=== PATIENT | female | born 1980 | race Two or more races ===

== ENCOUNTER → 2020-09-13 | Outpatient (CLI) | payer BC ==
--- NOTE | 2020-09-16 09:16 | MM ---
Reason for exam: screening (asymptomatic). Baseline mammogram. Physical Findings: Nurse did not find any significant physical abnormalities on exam. MG 3D Screening Mammo W/Cad Bilateral CC and MLO view(s) were taken. The breast tissue is heterogeneously dense. This may lower the sensitivity of mammography. There is no discrete abnormality. These results were verbally communicated with the patient and result sheet given to the patient on 09/13/20. ASSESSMENT: Benign, BI-RAD 2 RECOMMENDATION: Routine screening mammogram of both breasts in 1 year.
== END | disposition home or self-care (01) ==
LOC: RADMAMWWP 10:16
PROVIDERS: ATTEND Family Medicine
DX: Z12.31 Encounter for screening mammogram for malignant neoplasm of breast (principal)
CPT/HCPCS: 77063; 77067

== ENCOUNTER → 2021-09-17 | Outpatient (CLI) | payer BC ==
--- NOTE | 2021-09-19 10:50 | MM ---
Reason for exam: screening (asymptomatic). Last mammogram was performed 1 year ago. Physical Findings: A clinical breast exam by your physician is recommended on an annual basis and results should be correlated with mammographic findings. MG 3D Screening Mammo W/Cad Bilateral CC and MLO view(s) were taken. Prior study comparison: September 13, 2020, bilateral MG 3d screening mammo w/cad. The breast tissue is heterogeneously dense. This may lower the sensitivity of mammography. There is no discrete abnormality. No significant changes when compared with prior studies. ASSESSMENT: Negative, BI-RAD 1 RECOMMENDATION: Routine screening mammogram of both breasts in 1 year.
== END | disposition home or self-care (01) ==
LOC: RADMAMWWP 14:59
PROVIDERS: ATTEND Family Medicine
DX: Z12.31 Encounter for screening mammogram for malignant neoplasm of breast (principal)
CPT/HCPCS: 77063; 77067

== ENCOUNTER → 2022-10-15 | Outpatient (CLI) | payer BC ==
[2022-10-15 22:31] LABS: Basophils % (A) 1.2 %; Eosinophils # (A) 0.31 X 10*3/uL (0.04-0.35); Eosinophils % (A) 3.8 %; HCT 42.2 % (37.2-46.3); Immature Grans, Automated 0.4 %; Lymphocytes # (A) 2.74 X 10*3/uL (0.90-5.00); Lymphocytes % (A) 33.7 %; MCH 32.3 pg (27.0-32.0); MCHC 33.2 g/dL (32.0-37.0); MCV 97.5 fL (80.0-97.0); Mean Platelet Volume 10.1 fL (9.5-12.2); Monocytes # (A) 0.83 X 10*3/uL (0.20-1.00); Monocytes % (A) 10.2 %; NRBC Per 100 WBC 0 /100 WBCS (0.0-0.0); Neutrophils # (A) 4.12 X 10*3/uL (1.80-7.70); Neutrophils % (A) 50.7 %; Platelet Count 318 X 10*3/uL (140-440); RBC 4.33 X 10*6/uL (4.10-5.20); RDW 12.3 % (11.5-14.5); WBC 8.13 X 10*3/uL (4.50-10.00)
== END | disposition home or self-care (01) ==
LOC: LABPAT 14:03
PROVIDERS: ATTEND Obstetrics & Gynecology
DX: Z01.812 Encounter for preprocedural laboratory examination (principal)
CPT/HCPCS: 85025

== ENCOUNTER 2022-10-22 05:44 | Day surgery (SDC) | payer BC ==
--- NOTE | 2022-10-21 12:22 | P.HPOB ---
History of Present Illness H&P Date: 10/21/22 Chief Complaint: High-grade cervical dysplasia. This patient is a pleasant 42-year-old 3 para 2 female who had a Pap smear that showed some atypical cells and subsequent colposcopy showed high- grade dysplasia (CELESTINA-3) of the ectocervix with some HPV/atypical cells of the endocervix. I discussed options with the patient and we elected to proceed with LEEP excision of this area for treatment. Past Medical History Past Medical History: No Reported History Additional Past Medical History / Comment(s): High-grade cervical dysplasia History of Any Multi-Drug Resistant Organisms: None Reported Past Surgical History: Tubal Ligation, Uterine Ablation Past Anesthesia/Blood Transfusion Reactions: No Reported Reaction Additional Past Anesthesia/Blood Transfusion Reaction / Comment(s): no blood tranfusions Past Psychological History: Anxiety, Depression Smoking Status: Current every day smoker Past Alcohol Use History: None Reported Past Drug Use History: None Reported - Past Family History Mother Family Medical History: COPD Father Family Medical History: Hyperlipidemia, Hypertension Medications and Allergies Home Medications Medication Instructions Recorded Confirmed Type Venlafaxine HCl ER [Effexor XR] 75 mg PO HS #30 cap.er.24h 09/25/16 10/16/22 Rx Allergies Allergy/AdvReac Type Severity Reaction Status Date / Time No Known Allergies Allergy Verified 10/16/22 15:16 Exam - OBG Physical Exam Abdomen: bowel sounds normal, no diffuse tenderness, no bruit present, no guarding noted, no hepatomegaly, no splenomegaly, no mass Vulva: both: normal Vagina: normal moisture, no discharge Cervix: no lesion, no discharge Results Colposcopy done on September 03 showed CELESTINA-3 of the cervix at 12:00. Biopsy at 6:00 showed HPV and endocervical curettings showed atypical cells consistent with HPV. Assessment and Plan Assessment: This is a pleasant 42-year-old 3 para 2 female with high-grade ectocervical dysplasia. Plan is colposcopy with LEEP excision of the ectocervix and endocervix. Did have a long discussion with Emely about the surgery and risks and risks of infection, bleeding. All the patient's questions are answered and a written consent is obtained. (1) High grade squamous intraepithelial cervical dysplasia Status: Acute Code(s): R87.613 - HIGH GRADE INTREPITH LESION CYTO SMR CRVX (HGSIL) SNOMED Code(s): 443117413
[~2022-10-22 05:44] MED LIST: Pre Op ABX Message 1 EACH MISC MISCELLANE ONE
[2022-10-22] MEDS ORDERED: DEXAMETHASONE SOD PHOSPHATE 4 MG/ML 1 ML VIAL IV ONE (06:07)
[2022-10-22] MEDS ORDERED: ONDANSETRON 4 MG/2 ML VIAL IVP ONE (06:07)
[2022-10-22] MEDS ORDERED: HYDROmorphone 0.5 MG/0.5 ML SYRINGE IVP PRN (06:07)
[2022-10-22] MEDS ORDERED: LACTATED RINGERS 1,000 ML IV SCH (06:07)
[2022-10-22] MEDS ORDERED: PROPOFOL 10 MG/ML 20 ML VIAL IV ONE (06:50)
[2022-10-22] MEDS ORDERED: MIDAZOLAM 2 MG/2 ML VIAL ONE (06:50)
[2022-10-22] MEDS ORDERED: fentaNYL (PF) 50 MCG/ML 2 ML AMP ONE (06:50)
[2022-10-22] MEDS ORDERED: FERRIC SUBSULFATE (MONSELS) JAR TOPICAL ONE (06:53)
[2022-10-22] MEDS ORDERED: IODINE/POTASS IOD (LUGOLS) BOTTLE TOPICAL ONE (06:53)
--- NOTE | 2022-10-22 07:24 | P.OP ---
Date of Procedure: 10/22/22 Preoperative Diagnosis: High-grade cervical dysplasia Postoperative Diagnosis: Same Procedure(s) Performed: #1: Colposcopy. #2: LEEP excision of the ectocervix and endocervix Anesthesia: MAC Surgeon: Eed Stephen Estimated Blood Loss (ml): 10 Urine output (ml): 50 Pathology: other (Ectocervix and endocervix) Condition: stable Disposition: PACU Indications for Procedure: Please see dictated H&P for intimate details of this patient's admission. Brief summary this 42-year-old 3 para 2 female high-grade ectocervical dysplasia on colposcopy biopsy who presents for LEEP excision of this area patient understands this surgery and risks and risks of infection, bleeding. All the patient's questions are answered and a written consent is obtained. Operative Findings: This patient has small area of the ectocervix at 12:00 Description of Procedure: This patient is taken to the operating room where she is laid in supine position. She subsequent undergoes general mask anesthesia without incident. An adequate level of anesthesia, she's placed in dorsal lithotomy position. The bladder is drained for 50 mL of clear urine. A coated speculum was placed in the vagina. Colposcopy is then performed using Lugol's solution. With this done a large LEEP loop is used to at a 60/70 cutting cautery setting and one pass is made in the entire ectocervical areas removed. Using a small LEEP loop similarly the endocervical areas removed. Hemostasis is achieved with cautery and the margins of the ectocervix endocervix are cauterized. Excellent hemostasis is noted. Monsel solution is applied for added hemostasis. With this done and excellent hemostasis noted the procedure is ended. The speculum was removed. All counts correct 3. There are no complications.
[2022-10-22 07:26] VITALS: TEMP 98.2
[2022-10-22 08:41] VITALS: BP 138/91; PULSE 67; RESP 20
== END 2022-10-22 08:50 | disposition home or self-care (01) ==
LOC: OR 05:44
PROVIDERS: ATTEND Obstetrics & Gynecology
DX: D06.9 Carcinoma in situ of cervix, unspecified (principal); F41.9 Anxiety disorder, unspecified; F32.A Depression, unspecified; F17.200 Nicotine dependence, unspecified, uncomplicated; Z83.6 Family history of other diseases of the respiratory system; Z82.49 Family history of ischemic heart disease and other diseases of the circulatory system; Z83.49 Family history of other endocrine, nutritional and metabolic diseases
CPT/HCPCS: 81025; 88305; 88307; 57522; J2250; J1100; J2405; J3010; J2704

== ENCOUNTER → 2023-02-12 | Outpatient (CLI) | payer BC ==
--- NOTE | 2023-02-15 09:21 | MM ---
Reason for Exam: Screening (asymptomatic). Last mammogram was performed 1 year(s) and 4 month(s) ago. Patient History: Menarche at age 10. First Full-Term at age 20. Last menstrual period: 03/25/2021 Risk Values: Tori 5 year model risk: 0.7%. NCI Lifetime model risk: 8.7%. Prior Study Comparison: 09/13/2020 Bilateral Screening Mammogram, [facility]. 09/17/2021 Bilateral Screening Mammogram, [facility]. Tissue Density: The breast tissue is heterogeneously dense. This may lower the sensitivity of mammography. Findings: Analyzed By CAD. There is no suspicious group of microcalcifications or new suspicious mass in either breast. Overall Assessment: Negative, BI-RAD 1 Management: Screening Mammogram of both breasts in 1 year. A clinical breast exam by your physician is recommended on an annual basis and results should be correlated with mammographic findings. Electronically signed and approved by: Baldomero Brand D.O.
== END | disposition home or self-care (01) ==
LOC: RADMAMWWP 16:11
PROVIDERS: ATTEND Family Medicine
DX: Z12.31 Encounter for screening mammogram for malignant neoplasm of breast (principal)
CPT/HCPCS: 77063; 77067

== ENCOUNTER → 2024-04-07 | Outpatient (CLI) | payer BC ==
--- NOTE | 2024-04-07 18:39 | MM ---
Reason for Exam: Screening (asymptomatic). Last mammogram was performed 1 year(s) and 2 month(s) ago. Patient History: Menarche at age 10. First Full-Term at age 20. Patient used Hormonal Contraceptives for 5 years. Risk Values: Tori 5 year model risk: 0.8%. NCI Lifetime model risk: 8.5%. Prior Study Comparison: 09/13/2020 Bilateral Screening Mammogram, [facility]. 09/17/2021 Bilateral Screening Mammogram, [facility]. 02/12/2023 Bilateral MG 3D screening mammo w/cad, [facility]. Tissue Density: There are scattered areas of fibroglandular density. Findings: Analyzed By CAD. The pattern is symmetrical. There is a focal asymmetry within the anterior upper outer right breast. This may has some subtle increased. Additional evaluation is recommended with compression views. Left breast:No suspicious groups of microcalcifications, spiculated or lobular masses, architectural distortion or other secondary signs of malignancy are mammographically apparent. Overall Assessment: Incomplete: need additional imaging evaluation, BI-RAD 0 Management: Diagnostic Mammogram of the right breast. A negative mammogram report should not preclude additional follow up of suspicious palpable abnormalities. Patient should continue monthly self breast exam. A clinical breast exam by your physician is recommended on an annual basis and results should be correlated with mammographic findings. Note on Tori scores and lifetime risk: 1. A Tori score greater than 3% is considered moderate risk. If this is the case, consider specialist referral to assess eligibility for a risk reducing agent. 2. If overall lifetime risk for the development of breast cancer is 20% or higher, the patient may qualify for future screening with alternating mammogram and breast MRI. Electronically signed and approved by: Mauro Glover D.O. Radiologis
== END | disposition home or self-care (01) ==
LOC: RADMAMWWP 09:06
PROVIDERS: ATTEND Family Medicine
DX: Z12.31 Encounter for screening mammogram for malignant neoplasm of breast (principal)
CPT/HCPCS: 77063; 77067

== ENCOUNTER → 2024-04-13 | Outpatient (CLI) | payer BC ==
--- NOTE | 2024-04-14 09:39 | MM ---
Reason for Exam: Follow-up at short interval from prior study. Last screening mammogram was performed less than 1 month ago. Patient History: Menarche at age 10. First Full-Term at age 20. Patient used Hormonal Contraceptives for 5 years. Risk Values: Tori 5 year model risk: 0.8%. NCI Lifetime model risk: 8.5%. Prior Study Comparison: 09/17/2021 Bilateral Screening Mammogram, [facility]. 02/12/2023 Bilateral MG 3D screening mammo w/cad, [facility]. 04/07/2024 Bilateral MG 3D screening mammo w/cad, [facility]. Tissue Density: Right: The breasts are heterogeneously dense, which may obscure small masses. Findings: Analyzed By CAD. Asymmetric density improved. 6 month follow up recommended. Overall Assessment: Probably benign, BI-RAD 3 Management: Diagnostic Mammogram of the right breast in 6 months. A clinical breast exam by your physician is recommended on an annual basis and results should be correlated with mammographic findings. This exam should not preclude additional follow-up of suspicious palpable abnormalities. Results were given to the patient verbally at the time of exam. Electronically signed and approved by: Chuck Silvestre M.D. Radiologis
== END | disposition home or self-care (01) ==
LOC: RADMAMWWP 14:43
PROVIDERS: ATTEND Family Medicine
DX: R92.331 Mammographic heterogeneous density, right breast (principal); R92.8 Other abnormal and inconclusive findings on diagnostic imaging of breast
CPT/HCPCS: 77061; 77065

== ENCOUNTER → 2024-10-27 | Outpatient (CLI) | payer BC ==
--- NOTE | 2024-10-27 10:49 | MM ---
Reason for Exam: Follow-up at short interval from prior study. Last screening mammogram was performed 7 month(s) ago. Patient History: Menarche at age 10. First Full-Term at age 20. Patient used Hormonal Contraceptives for 5 years. Risk Values: Tori 5 year model risk: 0.8%. NCI Lifetime model risk: 8.5%. Prior Study Comparison: 02/12/2023 Bilateral MG 3D screening mammo w/cad, [facility]. 04/07/2024 Bilateral MG 3D screening mammo w/cad, [facility]. 04/13/2024 Right MG 3D work up w/cad RT, [facility]. Tissue Density: Right: The breasts are heterogeneously dense, which may obscure small masses. Findings: Analyzed By CAD. Stable breast asymmetry. No suspicious masses, calcifications or distortions. Overall Assessment: Benign, BI-RAD 2 Management: Screening Mammogram of both breasts in 1 year. Results were given to the patient verbally at the time of exam. Patient should continue monthly self-breast exams. A clinical breast exam by your physician is recommended on an annual basis. This exam should not preclude additional follow-up of suspicious palpable abnormalities. Note on Tori scores and lifetime risk: 1. A Tori score greater than 3% is considered moderate risk. If this is the case, consider specialist referral to assess eligibility for a risk reducing agent. 2. If overall lifetime risk for the development of breast cancer is 20% or higher, the patient may qualify for future screening with alternating mammogram and breast MRI. [facility], , 10/27/2024 10:37 AM. Electronically signed and approved by: Amilcar Davis DO
== END | disposition home or self-care (01) ==
LOC: RADMAMWWP 10:21
PROVIDERS: ATTEND Family Medicine
DX: R92.8 Other abnormal and inconclusive findings on diagnostic imaging of breast (principal); R92.331 Mammographic heterogeneous density, right breast
CPT/HCPCS: 77061; 77065